=== PATIENT | male | born 1935 | race American Indian/Alaskan Native ===

== ENCOUNTER 2018-01-21 20:03 | Observation (INO) | payer MEDICARE, MEDICAID ==
--- NOTE | 2018-01-21 21:31 | EDM.PDOC ---
ED HPI GENERAL MEDICAL PROBLEM - General Chief Complaint: General Stated Complaint: NOT FEELING WELL Time Seen by Provider: 01/21/18 21:26 Source of Information: Reports: Patient History Limitations: Reports: No Limitations - History of Present Illness INITIAL COMMENTS - FREE TEXT/NARRATIVE: states hadn't felt well past few days. been coughing congested till vomits. also no appetite. denies CP/SOB. denies F/C. states did see clinic yesterday and given ABX but not helping at all. - Related Data Allergies Allergy/AdvReac Type Severity Reaction Status Date / Time codeine Allergy Nausea Verified 01/21/18 20:08 lisinopril Allergy Cough Verified 01/21/18 20:08 Home Meds: Home Meds Aspirin [Children's Aspirin] 81 mg PO DAILY 09/19/13 [History] Atenolol [Tenormin] 50 mg PO DAILY 09/19/13 [History] Losartan [Cozaar] 100 mg PO DAILY 09/19/13 [History] amLODIPine [Norvasc] 5 mg PO DAILY 09/19/13 [History] atorvaSTATin [Lipitor] 10 mg PO BEDTIME 09/19/13 [History] Azithromycin [Zithromax] 250 mg PO DAILY 01/21/18 [History] Past Medical History HEENT History: Reports: Hard of Hearing Cardiovascular History: Reports: High Cholesterol, Hypertension - Past Surgical History Cardiovascular Surgical History: Reports: Coronary Artery Stent Social & Family History - Tobacco Use Smoking Status *Q: Never Smoker Second Hand Smoke Exposure: No - Recreational Drug Use Recreational Drug Use: No - Living Situation & Occupation Living situation: Reports: Alone ED ROS GENERAL - Review of Systems Review Of Systems: ROS reveals no pertinent complaints other than HPI. ED EXAM, GENERAL - Physical Exam Exam: See Below Exam Limited By: No Limitations General Appearance: Alert, WD/WN, Mild Distress, Other (little distraught) Ears: Hearing Grossly Normal Throat/Mouth: Normal Voice, No Airway Compromise Head: Atraumatic Neck: Non-Tender, Full Range of Motion Respiratory/Chest: No Respiratory Distress, No Accessory Muscle Use, Rales, Rhonchi Cardiovascular: Regular Rate, Rhythm GI/Abdominal: Soft, Non-Tender Neurological: Alert, Oriented, Normal Cognition, Normal Gait, No Motor/Sensory Deficits Psychiatric: Flat Affect Skin Exam: Warm, Dry, Normal Color Lymphatic: No Adenopathy Course - Vital Signs Last Recorded V/S: Last Vital Signs Temp 37.4 C 01/21/18 20:03 Pulse 105 H 01/21/18 20:03 Resp 22 H 01/21/18 20:03 BP 122/59 L 01/21/18 20:03 Pulse Ox 93 L 01/21/18 20:03 - Orders/Labs/Meds Orders: Active Orders 24 hr Category Date Time Status RT Aerosol Therapy [RC] ASDIRECTED Care 01/21/18 22:32 Active CULTURE BLOOD [BC] Stat Lab 01/21/18 23:26 Ordered LACTIC ACID [CHEM] Stat Lab 01/21/18 23:26 Ordered Labs: Laboratory Tests 01/21/18 01/21/18 01/21/18 Range/Units 21:39 21:39 21:39 WBC 1.7 L (5.0-10.0) 10^3/uL RBC 3.42 L (4.6-6.2) 10^6/uL Hgb 11.5 L D (14.0-18.0) g/dL Hct 34.2 L (40.0-54.0) % MCV 100.0 D (80-100) fL MCH 33.6 (27.0-34.0) pg MCHC 33.6 (33.0-35.0) g/dL Plt Count 104 L (150-450) 10^3/uL Neut % (Auto) 43.0 (42.2-75.2) % Lymph % (Auto) 25.3 (20.5-50.1) % [place] % (Auto) 22.9 H (2-8) % Eos % (Auto) 0.0 L (1.0-3.0) % Baso % (Auto) 8.8 H (0.0-1.0) % Sodium 131 L (135-145) mmol/L Potassium 4.6 (3.6-5.0) mmol/L Chloride 94 L (101-111) mmol/L Carbon Dioxide 25.0 (21.0-31.0) mmol/L Anion Gap 16.6 BUN 26 H D (7-18) mg/dL Creatinine 1.0 D (0.6-1.3) mg/dL Est Cr Clr Drug Dosing 48.51 mL/min Estimated GFR (MDRD) > 60 BUN/Creatinine Ratio 26.00 Glucose 123 H (74-105) mg/dL Calcium 8.9 (8.4-10.2) mg/dl Total Bilirubin 1.9 H (0.2-1.0) mg/dL AST 36 (10-42) IU/L ALT 16 (10-60) IU/L Alkaline Phosphatase 65 (42-121) IU/L B-Natriuretic Peptide 65 (0-100) pg/ml Total Protein 7.9 (6.7-8.2) g/dl Albumin 3.8 (3.2-5.5) g/dl Globulin 4.1 Albumin/Globulin Ratio 0.93 Meds: Medications Discontinued Medications Generic Name Dose Route Start Last Admin Trade Name Freq PRN Reason Stop Dose Admin Albuterol/Ipratropium 3 ml 01/21/18 22:31 01/21/18 22:40 Duoneb 3.0-0.5 Mg/3 Ml NEB 01/21/18 22:32 3 ml ONETIME ONE Administration Sodium Chloride 1,000 mls @ 999 mls/hr 01/21/18 22:31 01/21/18 22:40 Normal Saline IV 01/21/18 23:31 999 mls/hr .BOLUS ONE Administration - Re-Assessments/Exams Free Text/Narrative Re-Assessment/Exam: 01/21/18 23:37 case discussed with hospitalist who kindly admitted pt to observation Departure - Departure Time of Disposition: 23:38 Disposition: Refer to Observation Condition: Fair Clinical Impression: Electrolyte imbalance Pneumonia Qualifiers: Pneumonia type: due to unspecified organism Laterality: right Lung location: lower lobe of lung Qualified Code(s): J18.1 - Lobar pneumonia, unspecified organism - Discharge Information Forms: ED Department Discharge - My Orders Last 24 Hours: My Active Orders 01/21/18 22:32 RT Aerosol Therapy [RC] ASDIRECTED 01/21/18 23:26 CULTURE BLOOD [BC] Stat LACTIC ACID [CHEM] Stat - Assessment/Plan Last 24 Hours: My Active Orders 01/21/18 22:32 RT Aerosol Therapy [RC] ASDIRECTED 01/21/18 23:26 CULTURE BLOOD [BC] Stat LACTIC ACID [CHEM] Stat
[2018-01-21 22:05] LABS: CHLORIDE,CL 94 mmol/L (101-111); SODIUM,NA 131 mmol/L (135-145)
[2018-01-21] MEDS ORDERED: Albuterol/Ipratropium 3.0-0.5 MG/3 ML Neb Soln NEB ONE (22:31)
[2018-01-21] MEDS ORDERED: Sodium Chloride 0.9% 1,000 ML IV ONE (22:31)
[2018-01-22] MEDS ORDERED: Sodium Chloride 0.9% 10 ML Syringe FLUSH PRN (00:31)
[2018-01-22] MEDS ORDERED: Azithromycin 250 MG Tab PO SCH (00:45)
--- NOTE | 2018-01-22 00:45 | PCM.HP ---
H&P History of Present Illness - General Date of Service: 01/22/18 Admit Problem/Dx: Admission Diagnosis/Problem Admission Diagnosis/Problem Community acquired pneumonia Source of Information: Patient History Limitations: Reports: No Limitations - History of Present Illness Initial Comments - Free Text/Narative: 82 yo M with PMH of hypertension, hyperlipidemia p/w cough of 3 days duration. The patient developed cough on Thursday, symptoms started gradually. Cough is productive of dark yellow sputum. He has had chills, but no measured fever. He has also had some nausea and one episode of vomiting. No chest pain, no abdominal pain, no dysuria, no hematuria, no leg swelling. Onset of Symptoms: Reports: Gradual Duration of Symptoms: Reports: Day(s): (2) - Related Data Allergies/Adverse Reactions: Allergies Allergy/AdvReac Type Severity Reaction Status Date / Time codeine Allergy Nausea Verified 01/21/18 20:08 lisinopril Allergy Cough Verified 01/21/18 20:08 Home Medications: Home Meds Aspirin [Children's Aspirin] 81 mg PO DAILY 09/19/13 [History] Losartan [Cozaar] 100 mg PO DAILY 09/19/13 [History] amLODIPine [Norvasc] 5 mg PO DAILY 09/19/13 [History] atorvaSTATin [Lipitor] 10 mg PO BEDTIME 09/19/13 [History] Azithromycin [Zithromax] 250 mg PO DAILY 01/21/18 [History] Acetaminophen [Tylenol Extra Strength] 500 mg PO Q6H PRN 01/22/18 [History] Metoprolol Succinate [Toprol XL] 25 mg PO DAILY 01/22/18 [History] Past Medical History HEENT History: Reports: Hard of Hearing, Other (See Below) Other HEENT History: wax buildup, upper dentures, wears glasses Cardiovascular History: Reports: High Cholesterol, Hypertension, Stents Gastrointestinal History: Reports: Chronic Constipation, Other (See Below) Other Gastrointestinal History: occasional heartburn Endocrine/Metabolic History: Reports: Other (See Below) Other Endocrine/Metabolic History: boarderline diabetes Dermatologic History: Reports: Other (See Below) Other Dermatologic History: boil to right coccyx, chronic dry skin - Past Surgical History Cardiovascular Surgical History: Reports: Coronary Artery Stent Social & Family History - Family History HEENT: Reports: Impaired Vision Other HEENT Family History: father GI: Reports: Bowel Obstruction, Chronic Constipation Other GI Family History: mother - Tobacco Use Smoking Status *Q: Never Smoker Second Hand Smoke Exposure: No - Recreational Drug Use Recreational Drug Use: No - Living Situation & Occupation Living situation: Reports: Alone H&P Review of Systems - Review of Systems: Review Of Systems: See Below General: Reports: Chills HEENT: Reports: No Symptoms Pulmonary: Reports: Cough Cardiovascular: Reports: No Symptoms Gastrointestinal: Reports: Nausea Genitourinary: Reports: No Symptoms Musculoskeletal: Reports: No Symptoms Exam - Exam Exam: See Below - Vital Signs Vital Signs: Last Vital Signs Temp 36.8 C 01/21/18 23:50 Pulse 113 H 01/21/18 23:50 Resp 20 01/21/18 23:50 BP 127/65 01/21/18 23:50 Pulse Ox 97 01/21/18 23:50 Weight: 60.781 kg - Exam General: Alert, Oriented HEENT: Conjunctiva Clear, EOMI, Hearing Intact Neck: Supple, Trachea Midline Lungs: Crackles, Other (RLL) Cardiovascular: Regular Rate, Regular Rhythm GI/Abdominal Exam: Normal Bowel Sounds, Soft, Non-Tender Extremities: Non-Tender, No Pedal Edema - Patient Data Lab Results Last 24 hrs: Laboratory Results - last 24 hr 01/21/18 01/21/18 01/21/18 Range/Units 21:39 21:39 21:39 WBC 1.7 L (5.0-10.0) 10^3/uL RBC 3.42 L (4.6-6.2) 10^6/uL Hgb 11.5 L D (14.0-18.0) g/dL Hct 34.2 L (40.0-54.0) % MCV 100.0 D (80-100) fL MCH 33.6 (27.0-34.0) pg MCHC 33.6 (33.0-35.0) g/dL Plt Count 104 L (150-450) 10^3/uL Neut % (Auto) 43.0 (42.2-75.2) % Lymph % (Auto) 25.3 (20.5-50.1) % [place] % (Auto) 22.9 H (2-8) % Eos % (Auto) 0.0 L (1.0-3.0) % Baso % (Auto) 8.8 H (0.0-1.0) % Sodium 131 L (135-145) mmol/L Potassium 4.6 (3.6-5.0) mmol/L Chloride 94 L (101-111) mmol/L Carbon Dioxide 25.0 (21.0-31.0) mmol/L Anion Gap 16.6 BUN 26 H D (7-18) mg/dL Creatinine 1.0 D (0.6-1.3) mg/dL Est Cr Clr Drug Dosing 48.51 mL/min Estimated GFR (MDRD) > 60 BUN/Creatinine Ratio 26.00 Glucose 123 H (74-105) mg/dL Lactic Acid (0.5-2.2) mmol/L Calcium 8.9 (8.4-10.2) mg/dl Total Bilirubin 1.9 H (0.2-1.0) mg/dL AST 36 (10-42) IU/L ALT 16 (10-60) IU/L Alkaline Phosphatase 65 (42-121) IU/L B-Natriuretic Peptide 65 (0-100) pg/ml Total Protein 7.9 (6.7-8.2) g/dl Albumin 3.8 (3.2-5.5) g/dl Globulin 4.1 Albumin/Globulin Ratio 0.93 05/24/18 Range/Units 23:49 WBC (5.0-10.0) 10^3/uL RBC (4.6-6.2) 10^6/uL Hgb (14.0-18.0) g/dL Hct (40.0-54.0) % MCV (80-100) fL MCH (27.0-34.0) pg MCHC (33.0-35.0) g/dL Plt Count (150-450) 10^3/uL Neut % (Auto) (42.2-75.2) % Lymph % (Auto) (20.5-50.1) % [place] % (Auto) (2-8) % Eos % (Auto) (1.0-3.0) % Baso % (Auto) (0.0-1.0) % Sodium (135-145) mmol/L Potassium (3.6-5.0) mmol/L Chloride (101-111) mmol/L Carbon Dioxide (21.0-31.0) mmol/L Anion Gap BUN (7-18) mg/dL Creatinine (0.6-1.3) mg/dL Est Cr Clr Drug Dosing mL/min Estimated GFR (MDRD) BUN/Creatinine Ratio Glucose (74-105) mg/dL Lactic Acid 1.8 (0.5-2.2) mmol/L Calcium (8.4-10.2) mg/dl Total Bilirubin (0.2-1.0) mg/dL AST (10-42) IU/L ALT (10-60) IU/L Alkaline Phosphatase (42-121) IU/L B-Natriuretic Peptide (0-100) pg/ml Total Protein (6.7-8.2) g/dl Albumin (3.2-5.5) g/dl Globulin Albumin/Globulin Ratio Result Diagrams: 01/21/18 21:39 01/21/18 21:39 Evens Results Last 24 hrs: Microbiology 01/21/18 23:49 Anaerobic Blood Culture - Final Blood Imaging Impressions Last 24 hrs: right lower lobe infiltrate Problem List Initiated/Reviewed/Updated: Yes Orders Last 24hrs: Active Orders 24 hr Category Date Time Status Patient Status [ADT] Routine ADT 01/22/18 00:31 Ordered Ambulate [RC] ASDIRECTED Care 01/22/18 00:31 Ordered Bedrest Bathroom Privileges [RC] ASDIRECTED Care 01/22/18 00:31 Ordered Intake and Output [RC] QSHIFT Care 01/22/18 00:33 Ordered Oxygen Therapy [RC] PRN Care 01/22/18 00:31 Ordered Peripheral IV Care [RC] . DIRECTED Care 01/22/18 00:34 Ordered RT Aerosol Therapy [RC] ASDIRECTED Care 01/21/18 22:32 Active Up to Chair [RC] ASDIRECTED Care 01/22/18 00:31 Ordered VTE/DVT Education [RC] PER UNIT ROUTINE Care 01/22/18 00:31 Ordered Vital Signs [RC] Q4H Care 01/22/18 00:31 Ordered Regular Diet [DIET] Diet 01/22/18 Breakfast Ordered BASIC METABOLIC PANEL,BMP [CHEM] AM Lab 01/22/18 05:11 Ordered CBC WITH AUTO DIFF [HEME] AM Lab 01/22/18 05:11 Ordered CULTURE BLOOD [BC] Stat Lab 01/21/18 23:49 Results Acetaminophen [Tylenol] Med 01/22/18 00:31 Ordered 650 mg PO Q4H PRN Aspirin Med 01/22/18 09:00 Ordered 81 mg PO DAILY Azithromycin [Zithromax] Med 01/22/18 00:45 Ordered 500 mg PO DAILY Enoxaparin [Lovenox] Med 01/22/18 09:00 Ordered 40 mg SUBCUT DAILY Sodium Chloride 0.9% @ 125 MLS/HR (1000ml) Med 01/22/18 00:45 Ordered Sodium Chloride 0.9% [Normal Saline] 1,000 ml IV ASDIRECTED Sodium Chloride 0.9% [Saline Flush] Med 01/22/18 00:31 Ordered 10 ml FLUSH ASDIRECTED PRN atorvaSTATin [Lipitor] Med 01/22/18 21:00 Ordered 10 mg PO BEDTIME cefTRIAXone [Rocephin] 1,000 mg Med 01/22/18 00:45 Ordered Sodium Chloride 0.9% [Normal Saline] 100 ml IV Q24H Peripheral IV Insertion Adult [OM.PC] Routine Oth 01/22/18 00:31 Ordered Saline Lock Insert [OM.PC] Routine Oth 01/22/18 00:31 Ordered Resuscitation Status Routine Resus Stat 01/22/18 00:31 Ordered Medication Orders Acetaminophen (Tylenol) 650 mg PO Q4H PRN PRN Reason: Pain (Mild 1-3)/fever Aspirin (Aspirin) 81 mg PO DAILY [facility] Atorvastatin Calcium (Lipitor) 10 mg PO BEDTIME [facility] Azithromycin (Zithromax) 500 mg PO DAILY [facility] Enoxaparin Sodium (Lovenox) 40 mg SUBCUT DAILY [facility] Sodium Chloride (Normal Saline) 1,000 mls @ 125 mls/hr IV ASDIRECTED [facility] Ceftriaxone Sodium 1,000 mg/ (Sodium Chloride) 100 mls @ 200 mls/hr IV Q24H [facility] Sodium Chloride (Saline Flush) 10 ml FLUSH ASDIRECTED PRN PRN Reason: Keep Vein Open Assessment/Plan Comment:: 82 yo M with PMH of htn, hld p/w cough. CXR shows RLL pneumonia. #RLL pneumonia Lactic acid normal, not hypoxic on room air Start IV ceftriaxone, oral azithromycin IV fluids: NS 100 cc/hour PRN tylenol for fever Hold BP meds for now In view of hyponatremia, test for legionella urinary antigen #HTN Hold BP meds for now given acute infection #HLD continue statin #DVT ppx SC lovenox.
[2018-01-22] MEDS: Sodium Chloride 0.9% 1,000 ML IV SCH ×3 (01:11→17:30)
[2018-01-22] MEDS: Acetaminophen 325 MG Tab PO PRN ×2 (04:46→15:50)
[2018-01-22 07:11] LABS: CHLORIDE,CL 98 mmol/L (101-111); SODIUM,NA 130 mmol/L (135-145)
[2018-01-22] MEDS: Aspirin 81 MG Tab.Chew PO SCH (10:12)
[2018-01-22] MEDS: Enoxaparin 40 MG/0.4 ML Syringe SUBCUT SCH (10:13)
[2018-01-22] MEDS: amLODIPine 5 MG Tab PO SCH (11:39)
[2018-01-22] MEDS: Azithromycin 250 MG Tab PO SCH (20:41)
[2018-01-22] MEDS: atorvaSTATin 10 MG Tab PO SCH (20:42)
[2018-01-23] MEDS: Acetaminophen 325 MG Tab PO PRN (01:04)
[2018-01-23] MEDS: Sodium Chloride 0.9% 1,000 ML IV SCH (01:56)
[2018-01-23] MEDS: Aspirin 81 MG Tab.Chew PO SCH (09:49)
[2018-01-23] MEDS: amLODIPine 5 MG Tab PO SCH (09:49)
[2018-01-23] MEDS: Losartan 50 MG Tab PO SCH (09:49)
[2018-01-23] MEDS: Metoprolol Succinate 25 MG Tab.ER PO SCH (09:49)
[2018-01-23] MEDS: Enoxaparin 40 MG/0.4 ML Syringe SUBCUT SCH (09:50)
[2018-01-23] MEDS ORDERED: Ondansetron 4 MG/2 ML SDV IV PRN (09:53)
--- NOTE | 2018-01-23 10:11 | PCM.PN ---
- General Info Date of Service: 01/23/18 Admission Dx/Problem (Free Text): Admission Diagnosis/Problem Admission Diagnosis/Problem Community acquired pneumonia Subjective Update: Patient seen and examined. Complains of nausea, no vomiting. Still has a cough, productive of yellowish sputum. Feels a bit better today, but not yet back to baseline - Review of Systems General: Reports: No Symptoms HEENT: Reports: No Symptoms Pulmonary: Reports: Cough Cardiovascular: Reports: No Symptoms Gastrointestinal: Reports: Nausea Genitourinary: Reports: No Symptoms Musculoskeletal: Reports: No Symptoms - Patient Data Vitals - Most Recent: Last Vital Signs Temp 36.8 C 01/23/18 08:08 Pulse 83 01/23/18 09:49 Resp 20 01/23/18 08:08 BP 120/57 L 01/23/18 09:49 Pulse Ox 96 01/23/18 08:08 Weight - Most Recent: 60.781 kg I&O - Last 24 Hours: Intake & Output 01/22/18 01/23/18 01/23/18 22:59 06:59 14:59 Intake Total 980 1526 Output Total 300 Balance 980 1226 Evens Results Last 24 Hours: Microbiology 01/22/18 01:55 Legionella Urinary Antigen - Final Urine 01/21/18 23:49 Aerobic Blood Culture - Preliminary Blood NO GROWTH AFTER 1 DAY Anaerobic Blood Culture - Final Med Orders - Current: Current Medications Acetaminophen (Tylenol) 650 mg PO Q4H PRN PRN Reason: Pain (Mild 1-3)/fever Last Admin: 01/23/18 01:04 Dose: 650 mg Amlodipine Besylate (Norvasc) 5 mg PO DAILY [facility] Last Admin: 01/23/18 09:49 Dose: 5 mg Aspirin (Aspirin) 81 mg PO DAILY [facility] Last Admin: 01/23/18 09:49 Dose: 81 mg Atorvastatin Calcium (Lipitor) 10 mg PO BEDTIME [facility] Last Admin: 01/22/18 20:42 Dose: 10 mg Azithromycin (Zithromax) 500 mg PO BEDTIME [facility] Last Admin: 01/22/18 20:41 Dose: 500 mg Enoxaparin Sodium (Lovenox) 40 mg SUBCUT DAILY [facility] Last Admin: 01/23/18 09:50 Dose: 40 mg Ceftriaxone Sodium 1,000 mg/ (Sodium Chloride) 100 mls @ 200 mls/hr IV Q24H [facility] Last Admin: 01/23/18 01:03 Dose: 200 mls/hr Losartan Potassium (Cozaar) 100 mg PO DAILY [facility] Last Admin: 01/23/18 09:49 Dose: 100 mg Metoprolol Succinate (Toprol Xl) 25 mg PO DAILY [facility] Last Admin: 01/23/18 09:49 Dose: 25 mg Ondansetron HCl (Zofran) 4 mg IV Q4H PRN PRN Reason: Nausea/Vomiting Sodium Chloride (Saline Flush) 10 ml FLUSH ASDIRECTED PRN PRN Reason: Keep Vein Open Discontinued Medications Albuterol/Ipratropium (Duoneb 3.0-0.5 Mg/3 Ml) 3 ml NEB ONETIME ONE Stop: 01/21/18 22:32 Last Admin: 01/21/18 22:40 Dose: 3 ml Azithromycin (Zithromax) 500 mg PO DAILY [facility] Last Admin: 01/22/18 01:10 Dose: 500 mg Sodium Chloride (Normal Saline) 1,000 mls @ 999 mls/hr IV .BOLUS ONE Stop: 01/21/18 23:31 Last Admin: 01/21/18 22:40 Dose: 999 mls/hr Sodium Chloride (Normal Saline) 1,000 mls @ 125 mls/hr IV ASDIRECTED [facility] Last Admin: 01/23/18 01:56 Dose: 125 mls/hr - Exam General: Alert, Oriented HEENT: Pupils Equal, Pupils Reactive Lungs: Other (Right lower lobe crackles) Cardiovascular: Regular Rate, Regular Rhythm GI/Abdominal Exam: Normal Bowel Sounds - Problem List Review Problem List Initiated/Reviewed/Updated: Yes - My Orders Last 24 Hours: My Active Orders 01/22/18 10:00 amLODIPine [Norvasc] 5 mg PO DAILY 01/22/18 16:20 Flutter Valve Therapy [RT Chest Physiotherapy] [] ASDIRECTED RT Chest Physiotherapy [RC] ASDIRECTED 01/22/18 21:00 Azithromycin [Zithromax] 500 mg PO BEDTIME atorvaSTATin [Lipitor] 10 mg PO BEDTIME 01/23/18 09:00 Losartan [Cozaar] 100 mg PO DAILY Metoprolol Succinate [Toprol XL] 25 mg PO DAILY 01/23/18 09:53 Ondansetron [Zofran] 4 mg IV Q4H PRN - Plan Plan:: 82 yo M with PMH of htn, hld p/w cough. CXR shows RLL pneumonia. #RLL pneumonia Improving Continue IV ceftriaxone, oral azithromycin Discontinue IV fluids PRN tylenol for fever Legionella urinary antigen: Negative #Nausea Likely due to antibiotics When necessary IV Zofran #HTN Continue on oral BP meds BP control is acceptable #HLD continue statin #DVT ppx SC lovenox.
[2018-01-23] MEDS: atorvaSTATin 10 MG Tab PO SCH (20:37)
[2018-01-23] MEDS: Azithromycin 250 MG Tab PO SCH (20:37)
[2018-01-24] MEDS: amLODIPine 5 MG Tab PO SCH (09:23)
[2018-01-24] MEDS: Enoxaparin 40 MG/0.4 ML Syringe SUBCUT SCH (09:23)
[2018-01-24] MEDS: Metoprolol Succinate 25 MG Tab.ER PO SCH (09:23)
[2018-01-24] MEDS: Losartan 50 MG Tab PO SCH (09:24)
[2018-01-24] MEDS: Aspirin 81 MG Tab.Chew PO SCH (09:24)
--- NOTE | 2018-01-24 11:01 | PCM.DCSUM1 ---
Discharge Summary - Hospital Course Free Text/Narrative:: 82 yo M managed for Community acquired pneumonia. D/C home on Keflex and Azithromycin Follow up with PCP - Discharge Data Discharge Date: 01/24/18 Discharge Disposition: Home, Self-Care 01 Condition: Good - Patient Instructions Diet: Regular Diet as Tolerated Activity: As Tolerated Showering/Bathing: December Shower Notify Provider of: Fever - Discharge Plan Prescriptions/Med Rec: Azithromycin [Zithromax] 500 mg PO DAILY 2 Days tablet Cephalexin [Keflex] 500 mg PO Q8H 7 Days #21 cap Home Medications: Home Meds Aspirin 81 mg PO DAILY 09/19/13 [History] Losartan [Cozaar] 100 mg PO DAILY 09/19/13 [History] amLODIPine [Norvasc] 5 mg PO DAILY 09/19/13 [History] atorvaSTATin [Lipitor] 10 mg PO BEDTIME 09/19/13 [History] Acetaminophen [Tylenol Extra Strength] 500 mg PO Q6H PRN 01/22/18 [History] Metoprolol Succinate [Toprol XL] 25 mg PO DAILY 01/22/18 [History] Azithromycin [Zithromax] 500 mg PO DAILY 2 Days tablet 01/24/18 [Rx] Cephalexin [Keflex] 500 mg PO Q8H 7 Days #21 cap 01/24/18 [Rx] Forms: ED Department Discharge Referrals: PCP,Unobtain [Ordering Only Provider] - - General Info Admission Dx/Problem (Free Text: Admission Diagnosis/Problem Admission Diagnosis/Problem Community acquired pneumonia Subjective Update: Patient seen and examined. Complains of nausea, no vomiting. Still has a cough, productive of yellowish sputum. Feels a bit better today. - Review of Systems General: Reports: No Symptoms HEENT: Reports: No Symptoms Pulmonary: Reports: Cough Cardiovascular: Reports: No Symptoms Gastrointestinal: Reports: No Symptoms Genitourinary: Reports: No Symptoms Musculoskeletal: Reports: No Symptoms - Patient Data Vitals - Most Recent: Last Vital Signs Temp 36.6 C 01/24/18 08:00 Pulse 72 01/24/18 09:23 Resp 20 01/24/18 08:00 BP 124/64 01/24/18 09:24 Pulse Ox 93 L 01/24/18 08:00 Weight - Most Recent: 60.781 kg I&O - Last 24 hours: Intake & Output 01/23/18 01/24/18 01/24/18 22:59 06:59 14:59 Intake Total 500 100 Output Total 600 Balance -100 100 KG Results - Last 24 hrs: Microbiology 01/21/18 23:49 Aerobic Blood Culture - Preliminary Blood NO GROWTH AFTER 2 DAYS Anaerobic Blood Culture - Final 01/22/18 01:55 Legionella Urinary Antigen - Final Urine Med Orders - Current: Current Medications Acetaminophen (Tylenol) 650 mg PO Q4H PRN PRN Reason: Pain (Mild 1-3)/fever Last Admin: 01/23/18 01:04 Dose: 650 mg Amlodipine Besylate (Norvasc) 5 mg PO DAILY [facility] Last Admin: 01/24/18 09:23 Dose: 5 mg Aspirin (Aspirin) 81 mg PO DAILY [facility] Last Admin: 01/24/18 09:24 Dose: 81 mg Atorvastatin Calcium (Lipitor) 10 mg PO BEDTIME [facility] Last Admin: 01/23/18 20:37 Dose: 10 mg Azithromycin (Zithromax) 500 mg PO BEDTIME [facility] Last Admin: 01/23/18 20:37 Dose: 500 mg Enoxaparin Sodium (Lovenox) 40 mg SUBCUT DAILY [facility] Last Admin: 01/24/18 09:23 Dose: 40 mg Ceftriaxone Sodium 1,000 mg/ (Sodium Chloride) 100 mls @ 200 mls/hr IV Q24H [facility] Last Infusion: 01/24/18 01:52 Dose: Infused Losartan Potassium (Cozaar) 100 mg PO DAILY [facility] Last Admin: 01/24/18 09:24 Dose: 100 mg Metoprolol Succinate (Toprol Xl) 25 mg PO DAILY [facility] Last Admin: 01/24/18 09:23 Dose: 25 mg Ondansetron HCl (Zofran) 4 mg IV Q4H PRN PRN Reason: Nausea/Vomiting Last Admin: 01/23/18 10:29 Dose: 4 mg Sodium Chloride (Saline Flush) 10 ml FLUSH ASDIRECTED PRN PRN Reason: Keep Vein Open Discontinued Medications Albuterol/Ipratropium (Duoneb 3.0-0.5 Mg/3 Ml) 3 ml NEB ONETIME ONE Stop: 01/21/18 22:32 Last Admin: 01/21/18 22:40 Dose: 3 ml Azithromycin (Zithromax) 500 mg PO DAILY [facility] Last Admin: 01/22/18 01:10 Dose: 500 mg Sodium Chloride (Normal Saline) 1,000 mls @ 999 mls/hr IV .BOLUS ONE Stop: 01/21/18 23:31 Last Admin: 01/21/18 22:40 Dose: 999 mls/hr Sodium Chloride (Normal Saline) 1,000 mls @ 125 mls/hr IV ASDIRECTED [facility] Last Admin: 01/23/18 01:56 Dose: 125 mls/hr - Exam General: Reports: Alert, Oriented HEENT: Reports: Pupils Equal, Pupils Reactive Lungs: Reports: Crackles Cardiovascular: Reports: Regular Rate, Regular Rhythm GI/Abdominal Exam: Normal Bowel Sounds
== END 2018-01-24 13:04 | disposition home or self-care (01) ==
LOC: DL.ED 20:03 → DL.MS 23:46 → UNDOADMIN 23:46 → DL.MS 01-22 00:31 → INTOOBSV 01-22 00:31
PROVIDERS: ADMIT Hospitalist; ATTEND Hospitalist
DX: J18.1 Lobar pneumonia, unspecified organism (principal); I10 Essential (primary) hypertension; E78.5 Hyperlipidemia, unspecified; E78.00 Pure hypercholesterolemia, unspecified; K59.09 Other constipation; R73.03 Prediabetes; Z79.82 Long term (current) use of aspirin; Z79.899 Other long term (current) drug therapy; Z88.5 Allergy status to narcotic agent; Z88.8 Allergy status to other drugs, medicaments and biological substances; Z95.5 Presence of coronary angioplasty implant and graft
CPT/HCPCS: 36415; 71046; 80048; 80053; 83605; 83880; 85025; 87040; 87899; 96360; 96361; 96365; 96366; 96372; 96375; 99285; A9270-GY; G0378; J0696; J1650; J2405; J7030; J7050